=== PATIENT | female | born 1945 | race Caucasian/White ===

== ENCOUNTER 2017-02-26 07:02 | Day surgery (SDC) | payer MEDICARE, OTHER ==
[2017-02-26 07:47] VITALS: BMI 30.2
--- NOTE | 2017-02-26 08:18 | CP.SDSHP ---
Same Day Surgery H & P - History Proposed Procedure: EGD Pre-Op Diagnosis: SEE NOTES - Previous Medical/Surgical History Cardiac: Hypertension Pulmonary: Asthma, Bronchitis Endocrine/Metabolic: Thyroid Disease, Other Misc: Other Pain: 4.Moderate Pain - Allergies Allergies: Allergies No Known Allergies Allergy (Verified 02/26/17 07:46) - Physical Exam General Appearance: N Vital Signs: Vital Signs 02/26/17 08:00 Temperature 97.0 F L Pulse Rate 73 Respiratory 17 Rate Blood Pressure 109/59 L O2 Sat by Pulse 100 Oximetry Mental Status: Alert & Oriented x3 Neuro: WNL Heart: Other Lungs: Other GI: WNL - {Optional Preform as Required} Breast: WNL Abdomen: Other Rectal: Other Integument: WNL : WNL Ortho: Other ENT: WNL - Impression Pt. Evaluated Today:Candidate for Anesthesia & Procedure: Yes - Date & Time Time: 08:18 Short Stay Discharge - Short Stay Discharge Admitting Diagnosis/Reason for Visit: FUNCTIONAL DYSPEPSIA Disposition: HOME/ ROUTINE
[2017-02-26] MEDS ORDERED: Pantoprazole 40 mg EC Tab PO STA (08:19)
[2017-02-26] MEDS ORDERED: Belladonna-Phenobarbital PO STA (08:19)
[2017-02-26] MEDS ORDERED: Propofol 10 mg/ml Inj (20 ML) ONE (08:43)
[2017-02-26 09:19] VITALS: TEMP 97.8
[2017-02-26 10:23] VITALS: RESP 18
[2017-02-26 10:26] VITALS: BP 116/57; PULSE 65; O2SAT 98
== END 2017-02-26 10:05 | disposition home or self-care (01) ==
LOC: C.ENDO 07:02
PROVIDERS: ATTEND Specialist
DX: R10.13 Epigastric pain (principal); K20.9 Esophagitis, unspecified; K44.9 Diaphragmatic hernia without obstruction or gangrene
CPT/HCPCS: 43239; 88305; J2704; J3010

== ENCOUNTER 2017-03-03 07:44 | Day surgery (SDC) | payer MEDICARE, OTHER ==
[2017-03-03] MEDS ORDERED: Propofol 10 mg/ml Inj (20 ML) ONE (10:05)
--- NOTE | 2017-03-03 10:05 | CP.SDSHP ---
Same Day Surgery H & P - History Proposed Procedure: COLONSCOPY Pre-Op Diagnosis: SEE NOTES - Previous Medical/Surgical History Cardiac: Hypertension Pulmonary: Asthma Endocrine/Metabolic: Thyroid Disease, Other Misc: Other Pain: 4.Moderate Pain Previous Surgical History: G.B. SX. - Allergies Allergies: Allergies No Known Allergies Allergy (Verified 02/26/17 07:46) - Physical Exam General Appearance: N Vital Signs: Vital Signs 03/03/17 08:14 Temperature 97.5 F L Pulse Rate 72 Respiratory 16 Rate Blood Pressure 102/57 L O2 Sat by Pulse 98 Oximetry Mental Status: Alert & Oriented x3 Neuro: WNL Heart: Other Lungs: Other GI: Other - {Optional Preform as Required} Breast: WNL Abdomen: Other Rectal: Other Integument: WNL : WNL Ortho: Other ENT: WNL - Impression Pt. Evaluated Today:Candidate for Anesthesia & Procedure: Yes - Date & Time Time: 10:06 Short Stay Discharge - Short Stay Discharge Admitting Diagnosis/Reason for Visit: COLON SCREENING Disposition: HOME/ ROUTINE
[2017-03-03] MEDS ORDERED: Belladonna-Phenobarbital PO ONE (10:07)
[2017-03-03] MEDS ORDERED: Pantoprazole 40 mg EC Tab PO ONE (10:07)
[2017-03-03] MEDS ORDERED: Lactated Ringer's 1,000 ML IV SCH (10:15)
[2017-03-03 11:34] VITALS: TEMP 97.3
[2017-03-03 11:35] VITALS: O2SAT 99
[2017-03-03 11:49] VITALS: BP 107/65; PULSE 74; RESP 16
== END 2017-03-03 12:12 | disposition home or self-care (01) ==
LOC: C.ENDO 07:44
PROVIDERS: ATTEND Specialist
DX: K58.9 Irritable bowel syndrome, unspecified (principal); K57.30 Diverticulosis of large intestine without perforation or abscess without bleeding; K64.8 Other hemorrhoids
CPT/HCPCS: 45380; 88305; 88313; 88342; J2704; J7120